=== PATIENT | male | born 1985 | race Caucasian/White ===

== ENCOUNTER → 2018-05-16 15:38 | Outpatient (CLI) | payer OTHER, SELFPAY ==
--- NOTE | 2018-05-16 15:47 | RAD_ITS ---
STUDY: X-RAY - ABDOMEN/PELVIS REASON FOR EXAM: Male, 32 years old. Right-sided flank pain. TECHNIQUE: 1 view COMPARISON: None. FINDINGS: Normal visualized lung bases. There is an unremarkable bowel gas pattern. There is no demonstrated free abdominal air. The visualized liver, spleen and kidneys are grossly normal in size and morphology. Normal soft tissue structures. Normal visualized osseous structures. RAD/Abdomen Single View IMPRESSION: Normal x-ray examination of the abdomen and pelvis. Normal size of the renal silhouettes bilaterally. Negative for renal, ureteral or bladder stones. Electronically Signed: Enedina Pickett MD at 19:06 EDT , Service support ,
== END ==
PROVIDERS: Visit Provider Urology
DX: R10.9 Unspecified abdominal pain (principal); Z87.442 Personal history of urinary calculi
CPT/HCPCS: 74018

== ENCOUNTER → 2018-05-20 17:44 | Outpatient (CLI) | payer OTHER, SELFPAY ==
--- NOTE | 2018-05-20 17:54 | CT_ITS ---
STUDY: CT ABDOMEN AND PELVIS WITHOUT CONTRAST REASON FOR EXAM: Male, 32 years old. Right flank pain, groin pain RADIATION DOSAGE (If Supplied By Facility): CTDIvol = ( 8.59 ) mGy, DLP = ( 444.30 ) mGycm TECHNIQUE: Transaxial images were obtained from the dome of the diaphragm to the symphysis pubis without oral contrast, and without intravenous contrast. Sagittal and coronal images were reconstructed. Individualized dose optimization techniques were used for this CT. COMPARISON: None. FINDINGS: The visualized lung bases are unremarkable. The visualized portions of the heart are within normal limits. Normal liver. Normal gallbladder and extrahepatic biliary system. Normal spleen. Normal pancreas. Normal bilateral adrenal glands. Nonobstructive 2 mm stones in the right kidney. Normal left kidney. Normal visualized stomach. Normal small intestine. Normal colon. The appendix is visualized and appears normal. Normal abdominal aorta. Normal inferior vena cava. Normal retroperitoneum. Up to 1 cm nonspecific central mesenteric nodes are noted. Normal urinary bladder. Mild fatty density at the inguinal canals. Normal abdominal wall. Normal osseous structures. CT/Abdomen/Pelvis without Cont IMPRESSION: Nonobstructive right renal stones. Nonspecific up to 1 cm mesenteric nodes. Electronically Signed: Jassi Martinez DO at 21:04 EDT Tel [phone], Service support ,
== END ==
PROVIDERS: Visit Provider Nurse Practitioner Adult Health
DX: R10.9 Unspecified abdominal pain (principal)
CPT/HCPCS: 74176

== ENCOUNTER 2020-03-30 22:13 | Emergency (ER) | payer OTHER, SELFPAY ==
[2020-03-30 22:15] VITALS: BP 155/106; PULSE 104; RESP 18; TEMP 36.2; O2SAT 96; BMI 26.6
--- NOTE | 2020-03-30 22:28 | RAD_ITS ---
STUDY: X-RAY - LEFT ANKLE REASON FOR EXAM: Male, 34 years old. Pt rolled left ankle. Lateral pain and swelling. TECHNIQUE: 3 view(s) of the ankle. COMPARISON: None. FINDINGS: Normal visualized distal tibia and fibula. Normal medial and lateral malleoli. Normal tibiotalar articulation and ankle mortise. Normal visualized talus and calcaneus. The visualized subtalar, talonavicular, calcaneocuboid and tarsal articulations are normal. There is no demonstrated fracture. The soft tissue structures are unremarkable. RAD/Ankle min 3 Views IMPRESSION: Normal x-ray examination of the ankle. Electronically Signed: Andrew Ramirez MD at 22:54 EDT , Service support ,
--- NOTE | 2020-03-30 22:28 | RAD_ITS ---
STUDY: X-RAY - LEFT FOOT CLINICAL: Male, 34 years old. Pt rolled left ankle and foot. lateral pain. TECHNIQUE: 3 view(s) of the foot. COMPARISON: None. FINDINGS: Normal talus, calcaneus, and tarsal bones. Normal visualized subtalar, talonavicular, calcaneocuboid, tarsal and tarsometatarsal articulations. Normal metatarsi. Normal metatarsophalangeal joint of the great toe. Normal tibial and fibular sesamoid bones. Normal interphalangeal joint of the great toe. Normal phalanges of the great toe. Normal second through fifth metatarsophalangeal joints. Normal interphalangeal joints and phalanges of the lesser toes. The soft tissue structures are unremarkable. There is no demonstrated fracture. RAD/Foot min 3 Views IMPRESSION: Normal x-ray examination of the foot. Electronically Signed: Andrew Ramirez MD at 22:54 EDT , Service support ,
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
[2020-03-30 22:57] VITALS: BP 124/93; PULSE 92; RESP 16; O2SAT 97
[2020-03-30 23:09] VITALS: BP 124/93; PULSE 92; RESP 16; O2SAT 97
== END 2020-03-30 23:10 | disposition home or self-care (01) ==
LOC: ED 23:04
PROVIDERS: Emergency Provider Emergency Medicine; PCP Family Medicine
DX: S93.402A Sprain of unspecified ligament of left ankle, initial encounter (principal); S93.602A Unspecified sprain of left foot, initial encounter; X50.1XXA Overexertion from prolonged static or awkward postures, initial encounter; Y93.9 Activity, unspecified; Y92.9 Unspecified place or not applicable
CPT/HCPCS: 73610; 73630; 99283

== ENCOUNTER → 2020-04-09 06:32 | Outpatient (CLI) | payer OTHER, SELFPAY ==
[2020-04-05 09:24] VITALS: BMI 26.6
--- NOTE | 2020-04-09 06:36 | MRI_ITS ---
STUDY: MRI LEFT ANKLE WITHOUT CONTRAST REASON FOR EXAM: Lateral left ankle pain extending anteriorly, rolled ankle 10 days ago. TECHNIQUE: Standardized fat and water weighted pulse sequences were obtained in all 3 orthogonal planes. COMPARISON: Radiographs 03/30/2020. FINDINGS: There is edema in the lateral subcutis adipose space. Normal posterior tibialis tendon. Normal flexor digitorum longus tendon. Normal flexor hallucis longus tendon. Normal peroneus longus and brevis tendons. Normal tibialis anterior tendon. Normal extensor hallucis longus tendon. There is fluid in the proximal extensor digitorum longus tendon sheath (T2 axial images 10-12). The extensor digitorum longus tendons are morphologically normal. Normal Achilles tendon and teno-osseous insertion. Normal plantar fascia. Normal plantar calcaneal tubercles. Normal intrinsic muscles of the rearfoot. Normal distal tibiofibular syndesmotic ligamentous complex. Normal lateral ligamentous complex. Normal subtalar ligaments and sinus tarsi. Normal deltoid ligamentous complexes. Normal plantar calcaneonavicular (spring) ligament. Normal tibiotalar articulation. Normal talar dome. Normal subtalar articulations. There is a very small talonavicular joint effusion (inversion recovery sagittal images 6, 7). There is a bone contusion of the head and neck of the talus (inversion recovery sagittal images 7-11). There is a bone contusion of the medial aspect of the navicular (inversion recovery sagittal images 4, 5). Normal calcaneocuboid articulation. There is a small bone contusion of the anterior superior calcaneal process (inversion recovery sagittal images 11, 12). There is a bone contusion of the cuboid (inversion recovery sagittal images 9-11). Normal navicular-cuneiform articulations. MRI/Lower Ext Joint Only (Routine) IMPRESSION: Extensor digitorum longus tenosynovitis. Bone contusions of the talus, navicular, anterior superior calcaneal process and cuboid. Very small talonavicular joint effusion. Electronically Signed: Rogers Sloan MD at 8:35 EDT Tel , Service support ,
== END ==
PROVIDERS: PCP Family Medicine; Referring Provider Physician Assistant Surgical; Visit Provider Physician Assistant Surgical
DX: S93.402A Sprain of unspecified ligament of left ankle, initial encounter (principal); X50.1XXA Overexertion from prolonged static or awkward postures, initial encounter
CPT/HCPCS: 73721